=== PATIENT | female | born 1945 | race Caucasian/White ===

== ENCOUNTER → 2020-05-21 11:30 | Outpatient (BNVA) | payer MEDICARE, OTHER, SELFPAY | PROVIDERS: Family Provider Family Medicine; PCP Family Medicine; Visit Provider Internal Medicine Nephrology | DX: N18.9 Chronic kidney disease, unspecified (principal) | CPT/HCPCS: 80069; 82044 ==

== ENCOUNTER 2021-05-30 08:55 | Outpatient (CLI) | payer MEDICARE, OTHER, SELFPAY ==
--- NOTE | 2021-05-30 09:05 | MM_ITS ---
WS: [id number] Bilateral diagnostic digital mammogram, 05/30/2021 Clinical Data: INCONCLUSIVE MAMMOGRAM;ABNORMALITY RT BREAST Comparison: 11/29/2019, 07/22/2016, 05/15/2015, 07/30/2012, 02/06/2010. Findings: The breast parenchymal pattern shows fibroglandular tissue. There are bilateral mole markers. No spic ulated masses or clustered calcifications are seen. By history there may have been an abnormality pavithra se to the nipples. None is seen on this exam. MM/[place] [id number] Impression: 1. Negative bilateral mammograms unchanged. 2. Bilateral ultrasound of both nipples. BIRADS: 2-Benign FOLLOW UP: See Report The CAD schedule checker was used.
--- NOTE | 2021-05-30 09:05 | US_ITS ---
WS: [id number] Bilateral breast ultrasound, 05/30/2021 Clinical Data: BILAT BREAST Comparison: Left breast ultrasound, 07/22/2016. Findings: Bilateral breast ultrasound in the periaortic areolar regions showed no abnormalities. Only normal ti ssue is seen. There are no cysts or masses. US/US breast BI limited* [id number] Impression: 1. Negative bilateral periareolar breast ultrasound. 2. Return to annual screening mammograms. BIRADS: 2-Benign FOLLOW UP: 1 Year Follow-up
== END 2021-05-30 08:56 | disposition home or self-care (01) ==
LOC: RADSHAW 09:04
PROVIDERS: Family Provider Family Medicine; PCP Family Medicine; Visit Provider Family Medicine
DX: R92.2 Inconclusive mammogram (principal); R92.8 Other abnormal and inconclusive findings on diagnostic imaging of breast
CPT/HCPCS: 76642; 77066

== ENCOUNTER 2023-04-30 06:00 | Outpatient (RCR) | payer MEDICARE, OTHER, SELFPAY | END 2023-05-08 23:59 | disposition home or self-care (01) | LOC: WPT 06:00 | PROVIDERS: Visit Provider Family Medicine | DX: M54.50 Low back pain, unspecified (principal) | CPT/HCPCS: 97110; 97112; 97162; 97530 ==

== ENCOUNTER 2023-05-09 06:00 | Outpatient (RCR) | payer MEDICARE, OTHER, SELFPAY | END 2023-06-08 23:59 | disposition home or self-care (01) | LOC: WPT 06:00 | PROVIDERS: Visit Provider Family Medicine | DX: M54.50 Low back pain, unspecified (principal) | CPT/HCPCS: 97110; 97112; 97530 ==

== ENCOUNTER 2023-06-09 06:00 | Outpatient (RCR) | payer MEDICARE, OTHER, SELFPAY | END 2023-07-09 23:59 | disposition home or self-care (01) | LOC: WPT 06:00 | PROVIDERS: Visit Provider Family Medicine | DX: M54.50 Low back pain, unspecified (principal) | CPT/HCPCS: 97110; 97112; 97530 ==

== ENCOUNTER → 2025-09-11 14:47 | Outpatient (BNVA) | payer MEDICARE, OTHER, SELFPAY | PROVIDERS: PCP Nurse Practitioner Family; Visit Provider Nurse Practitioner Family | DX: R30.0 Dysuria (principal); N39.0 Urinary tract infection, site not specified | CPT/HCPCS: 81003; 87086 ==